=== PATIENT | female | born 1995 | race Caucasian/White ===

== ENCOUNTER 2019-07-24 10:32 | Inpatient (IN) | payer OTHER, BC ==
[~2019-07-24] VITALS: Ht 149.9 cm; Wt 45.7 kg
[~2019-07-24 10:32] MED LIST: BENADRYL25 MG PO; IBUP800 PO; POLTRIOPSO RIGHTEYE; Verotin-Gr Cap1 EACH PO; Zofran Odt4 MG SL
[2019-07-24 11:31] LABS: BASOPHILS ABSOLUTE AUTO 0.03 K/mm3 (0.00-0.23); BASOPHILS PERCENT AUTO 0 % (0-2); EOSINOPHILS ABSOLUTE AUTO 0.01 K/mm3 (0.00-0.68); EOSINOPHILS PERCENT AUTO 0 % (0-6); Hematocrit 39.1 % (33.0-51.0); IMMATURE GRAN ABSOLUTE AUTO 0.07 K/mm3 (0.00-0.10); IMMATURE GRAN PERCENT AUTO 0 % (0-1); LYMPHOCYTES ABSOLUTE AUTO 0.75 K/mm3 (0.84-5.20); LYMPHOCYTES PERCENT AUTO 5 % (21-46); MONOCYTES ABSOLUTE AUTO 1.01 K/mm3 (0.16-1.47); MONOCYTES PERCENT AUTO 6 % (4-13); Mean Corpuscular HGB 29.3 pg (26.0-34.0); Mean Corpuscular HGB Conc 33.2 g/dL (31.5-36.5); Mean Corpuscular Volume 88 fL (80-100); Mean Platelet Volume 10.5 fL (9.1-12.4); NEUTROPHILS ABSOLUTE AUTO 14.49 K/mm3 (1.96-9.15); NEUTROPHILS PERCENT AUTO 89 % (41-73); Platelet Count 405 K/mm3 (150-400); RDW Coefficient Variation 12.4 % (11.7-14.2); RDW Standard Deviation 39.7 fL (35.1-46.3); Red Blood Cell Count 4.44 M/mm3 (3.80-5.20); White Blood Cell Count 16.36 K/mm3 (4.00-11.30)
[2019-07-24 11:45] LABS: Alanine Aminotransfer (ALT/SGP 15 U/L (12-78); Albumin, Blood 3.7 g/dL (3.4-5.0); Albumin/Globulin Ratio 0.7 (0.8-1.8); Alk Phos 99 U/L (50-136); Anion Gap 13 mmol/L (6-16); Aspartate Aminotrans (AST/SGOT 9 U/L (12-37); Bilirubin, Total 0.7 mg/dL (0.1-1.0); Blood Urea Nitrogen 22 mg/dL (8-24); Bun/Creatinine Ratio 36.2 (12.0-20.0); CO2, Blood 21 mmol/L (21-32); Calcium, Blood 9.6 mg/dL (8.5-10.1); Chloride, Blood 102 mmol/L (98-108); Creatinine, Blood 0.61 mg/dL (0.40-1.00); Globulin, Blood 5.1 g/dL (2.2-4.0); Glomerular Filtration Rate >60 (60-); Glucose, Blood 96 mg/dL (70-99); Sodium, Blood 136 mmol/L (136-145); Total Protein, Blood 8.8 g/dL (6.4-8.2)
[2019-07-24] MEDS ORDERED: NAPROXEN500 MG PO (12:19)
--- NOTE | 2019-07-24 16:16 | NUR ---
23 YO FEMALE PATIENT ADMITTED TO ICU 1 FOR FACIAL CELLULITIS AFTER REPORT FROM FREDI MOELLER. DENIES PAIN AT THIS TIME. DENIES SOB AT THIS TIME. MARGINS OF SWELLING MARKED. JAWS CLENCHED. BIOX 100
--- NOTE | 2019-07-24 18:42 | NUR ---
MD VISIT DR. KUMAR IN. AFRIN AND 4% TOPICAL LIDOCAINE ORDERED
--- NOTE | 2019-07-24 19:11 | NUR ---
DR. KUMRA SCOPED PATIENT. ORDERS TO ADVANCE DIET TOLERATED, WARM PACKS TO THE SWELLING AND OK FOR PATIENT TO USE SX. REPORT GIVEN TO FREDI MARCH
--- NOTE | 2019-07-24 19:52 | NUR ---
ASSUMED CARE NOTE: ASSUMED CARE OF PT @ 1900, RECEVIED REPORT FROM FREDI SIDHU. PT IS ALERT AND ORIENTEDX4. PT IS INDEPENDENT IN THE ROOM. PT STATES SHE HAS MINIMAL PAIN TO RIGHT SIDE FACIAL SWELLING. PT WAS GIVEN ORAL SUCTION, PT DRAINING YELLOW DRAINGAGE FROM INNER RIGHT SIDE OF MOUTH. PT IS ON RA WITH SPO2 @ 100%, LUNG SOUNDS CLEAR. NSR WITH HR @ 94, AT TIMES HR INCREASES TO 105. PT DENIES ANY CP OR PALPATATIONS. BOWEL TONES HEARD IN ALL FOUR QUADRANTS. AMPICILLAN RUNNING @ 100MLS/HR. PT RECEVIED FLU VACCINE. BED AT LOWEST LEVEL, CALL LIGHT WITHIN REACH
[2019-07-25 03:33] LABS: BASOPHILS ABSOLUTE AUTO 0.02 K/mm3 (0.00-0.23); BASOPHILS PERCENT AUTO 0 % (0-2); EOSINOPHILS PERCENT AUTO 0 % (0-6); Hematocrit 32.8 % (33.0-51.0); Hemoglobin 10.8 g/dL (11.5-16.0); IMMATURE GRAN ABSOLUTE AUTO 0.06 K/mm3 (0.00-0.10); IMMATURE GRAN PERCENT AUTO 0 % (0-1); LYMPHOCYTES ABSOLUTE AUTO 0.54 K/mm3 (0.84-5.20); LYMPHOCYTES PERCENT AUTO 4 % (21-46); MONOCYTES ABSOLUTE AUTO 0.08 K/mm3 (0.16-1.47); MONOCYTES PERCENT AUTO 1 % (4-13); Mean Corpuscular HGB 28.8 pg (26.0-34.0); Mean Corpuscular HGB Conc 32.9 g/dL (31.5-36.5); Mean Corpuscular Volume 88 fL (80-100); Mean Platelet Volume 10.8 fL (9.1-12.4); NEUTROPHILS ABSOLUTE AUTO 14.58 K/mm3 (1.96-9.15); NEUTROPHILS PERCENT AUTO 96 % (41-73); Platelet Count 332 K/mm3 (150-400); RDW Coefficient Variation 12.4 % (11.7-14.2); RDW Standard Deviation 39.7 fL (35.1-46.3); Red Blood Cell Count 3.75 M/mm3 (3.80-5.20); White Blood Cell Count 15.28 K/mm3 (4.00-11.30)
[2019-07-25 03:56] LABS: Alanine Aminotransfer (ALT/SGP 13 U/L (12-78); Albumin, Blood 2.7 g/dL (3.4-5.0); Albumin/Globulin Ratio 0.6 (0.8-1.8); Alk Phos 81 U/L (50-136); Anion Gap 10 mmol/L (6-16); Aspartate Aminotrans (AST/SGOT 9 U/L (12-37); Bilirubin, Total 0.5 mg/dL (0.1-1.0); Blood Urea Nitrogen 16 mg/dL (8-24); Bun/Creatinine Ratio 38.5 (12.0-20.0); CO2, Blood 20 mmol/L (21-32); Calcium, Blood 8.7 mg/dL (8.5-10.1); Chloride, Blood 109 mmol/L (98-108); Creatinine, Blood 0.42 mg/dL (0.40-1.00); Globulin, Blood 4.5 g/dL (2.2-4.0); Glomerular Filtration Rate >60 (60-); Glucose, Blood 134 mg/dL (70-99); Sodium, Blood 139 mmol/L (136-145); Total Protein, Blood 7.2 g/dL (6.4-8.2)
--- NOTE | 2019-07-25 04:38 | NUR ---
UPDATE: FACIAL SWELLING HAS DECREASED. PT STATES SHE CAN TALK MUCH BETTER THAN YESTERDAY. PT CONTINUES TO HAVE YELLOW DRAINAGE. PT USING SUCTION BEDSIDE. PT HAS DENIED PAIN DURING SHIFT.
--- NOTE | 2019-07-25 06:20 | NUR ---
SHIFT SUMMARY: NO ACUTE CHANGES. PT REMAINS A/OX3. PT HAS BEEN ON RA WITH SPO2 @ 98, NO S/S OF RESPRIATORY DISTRESS. FACIAL SWELLING HAS DECREASED. PT HAS DENIED PAIN T/O SHIFT, NO PRN PAIN MEDS GIVEN. PT HAS BEEN CONTINUING TO USE ORAL SUCTION AT BEDSIDE. PT HAS BEEN ABLE TO TOLERATE CLEAR LIQUIDS. VITALS STABLE. WILL CONTINUE TO MONITOR PT UNTIL REPORT IS GIVEN TO ONCOMING SHIFT
--- NOTE | 2019-07-25 07:55 | NUR ---
ASSUMED CARE: REPORT RECEIVED FROM ELIA Akers RN. ASSUMED CARE OF THIS PT AT APPROX 0700. ON ASSESSMENT, THE PT IS A&O, PLEASANT & COOPERATIVE. SHE IS CONVERSANT BUT CLEARS THROAT INTERMITTENTLY & STS PERSISTANT DIFFICULT SWALLOWING BUT IS TOLERATING INTAKE OF CLEAR LIQUIDS W/ NO S/SX ASPIRATION. SHE DENIES PAIN. LS ARE CLEAR T/O, PT ON RA W/ O2 SATS > 92%. MONITOR SHOWS SR W/ HR 70s & BP STABLE. NO GI/ COMPLAINTS. SKIN OVERALL CDI. SWELLING TO R SIDE OF FACE IMPROVED PER OFFGOING RN & PT REPORT. AREA IS STILL FIRM & TENDER TO TOUCH. WILL CONTINUE TO MONITOR & UPDATE NEEDED.
--- NOTE | 2019-07-25 09:27 | NUR ---
DR LEMUS: PROVIDER AT BEDSIDE TO SIDRA PT. STS OKAY TO BE PCU STATUS R/T CONTINUED SWELLING SURROUNDING AIRWAY. ORDERS PLACED, NO OTHER CHANGES AT THIS TIME. WILL CONTINUE TO MONITOR & UPDATE NEEDED.
--- NOTE | 2019-07-25 17:25 | NUR ---
TRANSFER TO PCU: REPORT HAS BEEN GIVEN TO AGUSTIN Akers RN TO ASSUME CARE, AT BEDSIDE. PT, CHART & ALL BELONGINGS HAVE BEEN TAKEN TO [facility] AT APPROX 1715 BY .
--- NOTE | 2019-07-25 18:32 | NUR ---
SHIFT SUMMARY ASSUMED PT CARE AT 1715 UPON TRANSFER FROM ICU. VS STABLE. NO S/S OF DISTRESS. RT SIDED FACIAL SWELLING NOTED; PT DENIES ANY C/O PAIN, SOB, DIFFICULTY SWALLOWING OR BREATHING. LUNGS CLEAR TO AUSCULTATION. PT AAOX4. INDEPENDENT IN ROOM. TOLERATED CLEAR LIQUID DIET WELL. WILL CONTINUE TO MONITOR UNTIL END OF SHIFT.
--- NOTE | 2019-07-26 03:11 | NUR ---
ASSUMED CARE AT 1900. DENIES PAIN . SPEAKS WELL. VERY MINIMAL FACIAL /NECK SWELLING NOTED EXTERNALLY. UNABLE TO OPEN MOUTH WIDE ENOUGH TO VISUALIZE SWOLLEN AREAS OF MOUTH. TOLERATES CLEAR LIQUIDS WELL AND ENCOURAGED. NO REPORT OF SWALLOWING DIFFICULTY.NO REPORT OF DRAINAGE INTO MOUTH OR SWALLOWING DRAINAGE.
--- NOTE | 2019-07-26 06:00 | NUR ---
SHIFT SUMMARY NOTED WHEN ASLEEP LOWEST HR 55 . SR ALL NOC AND SOME SB. LAST BP LOW ASYMPTOMATIC. SLEPT WELL, SAME HARD SIDE OF FACE JAW AREA TO PALPATION. CONT TO DENY PAIN AND SWALLOWING DIFFICULTY . CL LIQ TOLERATAED.
--- NOTE | 2019-07-26 08:20 | NUR ---
ASSUMPTION OF CARE RECEIVED REPORT AROUND 0710. PT AAOX4, VS STABLE. NO S/S OF DISTRESS. MILD RT SIDED FACIAL SWELLING NOTED. PT DENIES ANY C/O PAIN, SOB, DIFFICULTY SWALLOWING OR BREATHING. PLAN TO CONTINUE W/ IV ABX & IV DECADRON. PT INDEPENDENT IN ROOM. WILL CONTINUE TO MONITOR.
[2019-07-26] MEDS ORDERED: ONDA4 PO (10:15)
[2019-07-26] MEDS ORDERED: Culturelle1 CAP PO (10:15)
[2019-07-26] MEDS ORDERED: LEVFLO500 PO (10:15)
[2019-07-26] MEDS ORDERED: METR500 PO (10:17)
--- NOTE | 2019-07-26 11:36 | NUR ---
DISCHARGE SUMMARY DISCHARGE EDUCATION COMPLETED W/ PT & PT'S MOTHER. DISCUSSED MED REC & FOLLOW UP INSTRUCTIONS W/ PCP & ENT. PT VERBALIZED UNDERSTANDING & STATED SHE WOULD FOLLOW UP INSTRUCTED & TAKE MEDS PRESCRIBED. PT TO [employer] NEW PRESCRIPTIONS AT HER HOME PHARMACY TODAY. IV & TELE REMOVED. ALL PAPERWORK & BELONGINGS GIVEN TO PT. PT DISCHARGED HOME. AMBULATED OFF UNIT IN STABLE CONDITION.
== END 2019-07-26 11:55 | disposition home or self-care (01) | DRG 872 ==
LOC: ER 10:32 → ICUW 15:19 → ICUE 15:19 → ICUW 20:30 → PCU 07-25 17:11
PROVIDERS: Emergency Medicine; Nurse Practitioner Acute Care; ADMIT Internal Medicine
DX: A41.9 Sepsis, unspecified organism (principal); J39.0 Retropharyngeal and parapharyngeal abscess; F32.5 Major depressive disorder, single episode, in full remission; Z87.891 Personal history of nicotine dependence
CPT/HCPCS: 36415; 70491; 80053; 83605; 85025; 87040; 90686; 96365-59; 96375-59; 99285-25; G0008; J0295; J1100; J1885; J7030; Q9967

== ENCOUNTER → 2019-07-27 | Outpatient (CLI) | payer OTHER, BC ==
[~2019-07-27] MED LIST changes: +Culturelle1 CAP PO; +LEVFLO500 PO; +METR500 PO; +NAPROXEN500 MG PO; +ONDA4 PO
== END | disposition home or self-care (01) ==
LOC: LAB SHORT 15:59 → LAB 15:59
DX: L02.11 Cutaneous abscess of neck (principal)
CPT/HCPCS: 87070; 87075; 87205

== ENCOUNTER 2021-01-19 11:54 | Emergency (ER) | payer OTHER, BC ==
[~2021-01-19] VITALS: Ht 149.9 cm; Wt 40.8 kg
[2021-01-19 13:42] LABS: BASOPHILS ABSOLUTE AUTO 0.02 K/mm3 (0.00-0.23); BASOPHILS PERCENT AUTO 0 % (0-2); EOSINOPHILS ABSOLUTE AUTO 0.01 K/mm3 (0.00-0.68); EOSINOPHILS PERCENT AUTO 0 % (0-6); Hematocrit 41.7 % (33.0-51.0); Hemoglobin 13.9 g/dL (11.5-16.0); IMMATURE GRAN ABSOLUTE AUTO 0.02 K/mm3 (0.00-0.10); IMMATURE GRAN PERCENT AUTO 0 % (0-1); LYMPHOCYTES ABSOLUTE AUTO 1.69 K/mm3 (0.84-5.20); LYMPHOCYTES PERCENT AUTO 31 % (21-46); MONOCYTES PERCENT AUTO 5 % (4-13); Mean Corpuscular HGB 30.3 pg (26.0-34.0); Mean Corpuscular HGB Conc 33.3 g/dL (31.5-36.5); Mean Corpuscular Volume 91 fL (80-100); Mean Platelet Volume 12.3 fL (9.1-12.4); NEUTROPHILS ABSOLUTE AUTO 3.51 K/mm3 (1.96-9.15); NEUTROPHILS PERCENT AUTO 63 % (41-73); Platelet Count 168 K/mm3 (150-400); RDW Coefficient Variation 12.6 % (11.7-14.2); RDW Standard Deviation 41.3 fL (35.1-46.3); Red Blood Cell Count 4.59 M/mm3 (3.80-5.20); White Blood Cell Count 5.55 K/mm3 (4.00-11.30)
[2021-01-19 14:06] LABS: Alanine Aminotransfer (ALT/SGP 27 U/L (12-78); Albumin, Blood 4.2 g/dL (3.4-5.0); Albumin/Globulin Ratio 1.3 (0.8-1.8); Alk Phos 48 U/L (50-136); Anion Gap 7 mmol/L (6-16); Aspartate Aminotrans (AST/SGOT 18 U/L (12-37); Bilirubin, Total 0.6 mg/dL (0.1-1.0); Blood Urea Nitrogen 22 mg/dL (8-24); Bun/Creatinine Ratio 30.1 (12.0-20.0); CO2, Blood 22 mmol/L (21-32); Calcium, Blood 8.9 mg/dL (8.5-10.1); Chloride, Blood 112 mmol/L (98-108); Creatinine, Blood 0.73 mg/dL (0.40-1.00); Globulin, Blood 3.2 g/dL (2.2-4.0); Glomerular Filtration Rate >60 (60-); Glucose, Blood 103 mg/dL (70-99); Potassium, Blood 3.6 mmol/L (3.5-5.5); Sodium, Blood 141 mmol/L (136-145); Total Protein, Blood 7.4 g/dL (6.4-8.2); Troponin I <0.015 ng/mL (0.000-0.040)
== END 2021-01-19 16:43 | disposition home or self-care (01) ==
LOC: ER 11:54
PROVIDERS: Physician Assistant
DX: R07.89 Other chest pain (principal); F17.210 Nicotine dependence, cigarettes, uncomplicated; Z79.899 Other long term (current) drug therapy
CPT/HCPCS: 36415; 71045; 80053; 84484; 85025; 85379; 93005; 93010; 99284-25

== ENCOUNTER 2022-09-13 10:03 | Emergency (ER) | payer OTHER, BC ==
[~2022-09-13] VITALS: Ht 149.9 cm; Wt 46.7 kg
[2022-09-13 10:17] VITALS: BP 124/95
== END 2022-09-13 11:28 | disposition home or self-care (01) ==
LOC: ER 10:03
DX: M25.552 Pain in left hip (principal); W18.30XA Fall on same level, unspecified, initial encounter; Z91.040 Latex allergy status; Z79.899 Other long term (current) drug therapy; Z87.891 Personal history of nicotine dependence
CPT/HCPCS: 73502; 99283-25

== ENCOUNTER → 2023-11-12 | Outpatient (CLI) | payer OTHER | END | disposition home or self-care (01) | LOC: LAB SHORT 10:58 → LAB 10:58 | DX: N39.0 Urinary tract infection, site not specified (principal); R31.9 Hematuria, unspecified | CPT/HCPCS: 87077; 87086; 87186 ==